=== PATIENT | female | born 1990 | race Caucasian/White ===

== ENCOUNTER 2025-01-17 08:02 | Emergency (ER) | payer MEDICAID, OTHER ==
[~2025-01-17] VITALS: Ht 157.5 cm; Wt 63.0 kg
[2025-01-17 08:09] VITALS: O2SAT 100
[2025-01-17 09:00] LABS: HCG SCREEN NEGATIVE
[2025-01-17] MEDS: HYDROCODONE/ACETAMINOPHEN 5/325MG TABLET PO ONE (09:10)
[2025-01-17] MEDS ORDERED: ACET-2708 MT (11:15)
[2025-01-17] MEDS ORDERED: IBUP-2030 MT (11:15)
[2025-01-17 11:27] VITALS: BP 91/54; PULSE 66; RESP 18; TEMP 37; O2SAT 100
== END 2025-01-17 11:26 | disposition home or self-care (01) ==
LOC: ER 09:39
DX: S20.212A Contusion of left front wall of thorax, initial encounter (principal); S40.022A Contusion of left upper arm, initial encounter; X58.XXXA Exposure to other specified factors, initial encounter; Y93.89 Activity, other specified; Y92.410 Unspecified street and highway as the place of occurrence of the external cause; Y99.8 Other external cause status
CPT/HCPCS: 71250; 73060; 74176; 84703; 99284